=== PATIENT | male | born 1960 | race African-American/Black ===

== ENCOUNTER 2018-11-13 21:28 | Emergency (ER) | payer OTHER ==
[~2018-11-13] VITALS: Ht 190.5 cm; Wt 204.1 kg
[2018-11-13] MEDS ORDERED: IBUPROFEN600 MG ORAL (21:32)
[2018-11-13] MEDS ORDERED: ASPIR 8181 MG ORAL (21:32)
[2018-11-13] MEDS ORDERED: NORCO 5-325 TA1 EACH ORAL (21:32)
[2018-11-13] MEDS ORDERED: LANTUS SOL100 UNIT/1 SUBQ (21:32)
[2018-11-13 21:45] VITALS: BP 148/71
--- NOTE | 2018-11-13 21:45 | NUR ---
ED Nurse Note: pt brought in by CLIFF from home c/o sever back pain, pt states he has been having back pain for past four weeks, went to [facility] and received prednisone injection but didn't help relieve pain. denies any recent injuries, pain started at rest, 10/10 and radiates to upper and left buttock down to leg. pt CMS intact BUE/BLE, ambulatory w/ steady gait, noted tenderness on left buttock area, no sx injuries skin intact. will cont monitor.
--- NOTE | 2018-11-13 22:06 | Emergency Room Report ---
History of Present Illness General Chief Complaint: Back Pain-No Injury Source: Patient, EMS Present Illness HPI This is a 58-year-old male with history hypertension diabetes. He presents with chief complaint of lower back pain. Onset was about 3 weeks ago. He was just moving some equipment and started having pain to the left lower back just above the buttock area. Hurt to move. Throbbing in nature. Radiating to the buttock area. No fever chills but no incontinence of bowel or urine. Was seen a week or 2 ago at [facility]. He was given a shot of pain medication and discharged home. Denies any complaint. Try to get up today and pain can severe. Was 10 out of 10. Worse with movement. Allergies: Coded Allergies: No Known Allergies (Unverified , 11/13/18) Patient History Past Medical History: see triage record, old chart reviewed, DM, HTN Past Surgical History: none Pertinent Family History: none Social History: Denies: smoking Immunizations: other Reviewed Nursing Documentation: PMH: Agreed; PSxH: Agreed Nursing Documentation-PMH Past Medical History: No History, Except For Hx Hypertension: Yes Hx Diabetes: Yes Review of Systems Eye: Denies: eye pain, blurred vision ENT: Denies: ear pain, nose congestion, throat swelling Respiratory: Denies: cough, shortness of breath Cardiovascular: Denies: chest pain, palpitations Gastrointestinal: Denies: abdominal pain, diarrhea, nausea, vomiting Musculoskeletal: Reports: back pain; Denies: joint pain Skin: Denies: rash Neurological: Denies: headache, numbness Endocrine: Denies: increased thirst, increased urine Hematologic/Lymphatic: Denies: easy bruising All Other Systems: negative except mentioned in HPI Physical Exam Vital Signs Date Time Temp Pulse Resp B/P (MAP) Pulse Ox O2 Delivery O2 Flow Rate FiO2 11/13/18 21:28 98.2 93 22 134/72 99 Room Air vitals normal Sp02 EP Interpretation: reviewed, normal General Appearance: well appearing, no apparent distress, alert, obese Head: normocephalic, atraumatic Eyes: bilateral eye PERRL, bilateral eye EOMI ENT: hearing grossly normal, normal pharynx Neck: full range of motion, supple, no meningismus Respiratory: chest non-tender, lungs clear, normal breath sounds Cardiovascular #1: regular rate, rhythm, no murmur Gastrointestinal: normal bowel sounds, non tender, no mass, no organomegaly, no bruit, non-distended Musculoskeletal: back normal - Tenderness to the left lower lumbar at the proximal sacral area. No redness or abscess. No numbness., gait/station normal , normal range of motion Neurologic: alert, oriented x3 Psychiatric: mood/affect normal Skin: warm/dry Medical Decision Making Diagnostic Impression: Primary Impression: Back pain Qualified Codes: M54.5 - Low back pain Additional Impressions: Intractable back pain Morbid obesity with BMI of 50.0-59.9, adult Hyperglycemia due to type 2 diabetes mellitus Qualified Codes: E11.65 - Type 2 diabetes mellitus with hyperglycemia ER Course Patient present with intractable lower back pain. Most likely secondary to ileitis versus spinal stenosis versus herniated disc. Because of his weight, he is too obese to our CT scan or MRI. I see no red flags indicate cauda equina syndrome, spinal after abscess or neoplastic process. Because he cannot ambulate, will admit versus transfer for pain control. I discussed the case with Dr. Bolivar who accepted pt for transfer to [facility]. Lab Results Impression labs with leukocytosis Last Vital Signs Date Time Temp Pulse Resp B/P (MAP) Pulse Ox O2 Delivery O2 Flow Rate FiO2 11/13/18 21:28 98.2 93 22 134/72 99 Room Air Status: improved [facility] Condition: Stable Ed Tubbs MD Nov 13, 2018 22:06
[2018-11-13 22:45] VITALS: BP 154/77
[2018-11-13] MEDS ORDERED: LORazepam Inj 2mg/ml 1ml IV ONE (23:30)
[2018-11-13] MEDS ORDERED: Ketorolac 30mg Inj IV ONE (23:30)
--- NOTE | 2018-11-13 23:40 | NUR ---
ED Nurse Note: warm blanket provided for comfort and pain on back.
[2018-11-14 00:09] LABS: BASOPHILS % (AUTO) 0.8 % (0.0-2.0); EOSINOPHILS % (AUTO) 0.2 % (0.0-3.0); HEMATOCRIT 38.3 % (42.0-52.0); LYMPHOCYTES % (AUTO) 8.4 % (20.0-45.0); MEAN CORPUSCULAR VOLUME 89 FL (80-99); MONOCYTES % (AUTO) 10.3 % (1.0-10.0); NEUTROPHILS % (AUTO) 80.3 % (45.0-75.0); PLATELET COUNT 462 K/UL (150-450); RED BLOOD COUNT 4.32 M/UL (4.70-6.10); RED CELL DISTRIBUTION WIDTH 11.5 % (11.6-14.8)
--- NOTE | 2018-11-14 00:10 | NUR ---
ED Nurse Note: pt reports pain relief with medication but still continue to have pain, vss, resp even and unlabored on RA, pt resting, blanket provided for comfort, will cont monitor.
[2018-11-14 00:11] LABS: ANION GAP 13 mmol/L (5-15); BLOOD UREA NITROGEN 12 mg/dL (7-18); CALCIUM 9.3 MG/DL (8.5-10.1); CARBON DIOXIDE 24 MMOL/L (21-32); CHLORIDE 94 MMOL/L (98-107); CREATININE 0.9 MG/DL (0.55-1.30); POTASSIUM 3.6 MMOL/L (3.5-5.1); SODIUM 131 MMOL/L (136-145)
[2018-11-14 00:45] VITALS: BP 124/67
--- NOTE | 2018-11-14 02:40 | NUR ---
ED Nurse Note: pt sleeping at this time, arousable to light shake, denies pain at this time, VSS, resp even and unlabored on RA, will cont monitor. extra blanket provided for comfort.
[2018-11-14 02:45] VITALS: BP 119/67
--- NOTE | 2018-11-14 05:15 | NUR ---
ED Nurse Note: report given to LARY Castillo at [facility],pending xfr.
--- NOTE | 2018-11-14 05:55 | NUR ---
ED Nurse Note: pt c/o pain, 06/02 on low back, ERMD notified.
[2018-11-14 06:00] VITALS: BP 144/67
[2018-11-14] MEDS ORDERED: HYDROmorphone 1mg/ml Carpuject IVP ONE (06:00)
--- NOTE | 2018-11-14 06:00 | NUR ---
ED Nurse Note: PT transferred to [facility] to continue care, report given to receiving RN, summary of care sent w/ pt via ambulance personnel, pt vss, all belongings sent w/ pt, resp even and unlabored on RA.
== END 2018-11-14 06:00 | disposition short-term general hospital (02) ==
LOC: EDBD 21:28 → EMR 21:48
DX: M54.5 Low back pain (principal); E11.65 Type 2 diabetes mellitus with hyperglycemia; E66.01 Morbid (severe) obesity due to excess calories; Z68.43 Body mass index [BMI] 50.0-59.9, adult
CPT/HCPCS: 36415; 80048; 85025; 96372; 96374; 96375; 99285; J1170; J1885